=== PATIENT | male | born 1970 | race Two or more races ===

== ENCOUNTER 2021-08-22 00:10 | Inpatient (IN) | payer OTHER, SELFPAY ==
[2021-08-22 01:44] VITALS: BP 118/77; PULSE 86; RESP 17; TEMP 36; O2SAT 98; BMI 24.3
--- NOTE | 2021-08-22 02:39 | PC.ADMIT ---
50 yo male ad,itted to [facility] [place] 0022 this morning on a CV for psycha evaluation and detox. Per crisis repoirt
--- NOTE | 2021-08-22 02:41 | PC.ADMIT ---
50 yo male admitted [place] [facility] [place] for psych eval and detox. Per crisis report, pt presented to [facility] and after having been unsuccessful in securing a detox bed, was having SI stating that he was going to stab himself or [place] , after which he started waving knife in gestures to self harm. Report also stated pt said i cant live like this. Pt has been using Cocaine, heroin daily. Per crisis eval, pt is homeless. Pt states he has none when asked about family. No noted MHx. Pt was unable to complete admission process. Pt dx is Depression w/SI, Opioisd use d/o, stimulant use d/o cocaine. Pt has a significant hx of Inpt/Outpt psych as well as ATS(detox). Orders obtained and pt is on 15 min safety check.
[2021-08-22 06:00] VITALS: BP 131/72; PULSE 74; RESP 18; TEMP 36.5; O2SAT 96
--- NOTE | 2021-08-22 10:55 | PC.NURSE ---
Pt refused flu vaccine
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
--- NOTE | 2021-08-22 14:56 | HO.HSGERICON ---
History of Present Illness Data of Consult Service Date: 08/22/21 Primary Care Provider: Unknown Physician HPI Reason for consult: depression 50M admitted to inpatient psychiatry for severe depression. patient denies any medical complaints. he was not currently on any treatment for medical conditions. denies chest pain, sob, fever, chills. Review of Systems Review of Systems: Constitutional: Denies fever, denies Chills Eyes: denies blurry vision ENT: denies sore throat CVS: denies chest pain Respiratory: Denies dyspnea GI: no abdominal pain : denies dysuria MSK: denies neck pain Skin: denies rash Neuro: denies specific motor weakness Psych: depressed Endocrine: denies heat/cold intolerance Hematologic: denies easy bleeding Allergy: denies hives PMFSH Medical History Depression Opiate dependence Family History Mother Depression Social History Household Members: Unknown / Unable to assess Housing: Homeless Unable to assess alcohol history related to: Unknown Patient Tobacco Use Status: Current everyday Tobacco user Smoked in Last 30 Days: Yes Substance Use Type: Crack/Cocaine, Heroin and Marijuana Substance Use Frequency: Chronic Longstanding Last Used Substance: Just Prior to Admission Currently Displaying Signs/Symptoms of Drug Intoxication Withdrawal: No Any prior treatment program specific to substance use: Yes (many) Advance Directives: No Advance Directives Information Provided: No Advance Directives on File: No Do you have thoughts of harming others: None Do you have a plan to hurt others: No Plan Nutrition Risks: No Nutritional Risk Meds Allergies Allergy/AdvReac Type Severity Reaction Status Date / Time No Known Allergies Allergy Unverified 05/14/20 19:52 [No Known Allergies*] Active Medications: Current Medications Acetaminophen (Acetaminophen 325 Mg Tablet) 650 mg PO Q6H PRN PRN Reason: Headache/Pain Mild Scale (1-3) Al Hydroxide/Mg Hydroxide (Magnesium Hydrox/Alum Hydrox 30 Ml Oral.Susp) 30 ml PO Q6H PRN PRN Reason: Heartburn/Nausea Hydroxyzine HCl (Hydroxyzine Hcl 25 Mg Tablet) 25 mg PO BEDTIME PRN PRN Reason: Anxiety Magnesium Hydroxide (Milk Of Magnesia 30 Ml Oral.Susp) 30 ml PO DAILY PRN PRN Reason: Constipation Nicotine (Nicotine 21 Mg Patch.Td24) 21 mg TRANSDERMA DAILY PRN PRN Reason: Nicotine Cravings Nicotine Polacrilex (Nicotine Polacrilex 2 Mg Gum) 4 mg BUCCAL Q2H PRN PRN Reason: Nicotine Cravings Trazodone HCl (Trazodone Hcl 50 Mg Tablet) 50 mg PO BEDTIME PRN PRN Reason: Insomnia Assessment and Plan (1) Depression: Status: Acute 50M admitted for depression no acute medical issues continue psychiatric treatment Physical Exam Vital Signs: Last Vital Signs Temp 97.7 F 08/22/21 06:00 Pulse 74 08/22/21 06:00 Resp 18 08/22/21 06:00 BP 131/72 08/22/21 06:00 Pulse Ox 96 08/22/21 06:00 BMI result Body Mass Index 24.3 General: no acute distress HEENT: atraumatic Neck: normal to visual inspection CVS: S1, S2, RRR Resp: CTA bilateral Chest: non tender GI: soft, non tender, non distended : no CVA tenderness Skin: no rashes Extremities: no edema Neuro: Oriented X3, grossly intact, CN II-XII intact Psych: cooperative Neuro Cranial nerves: Yes CN's II-XII intact bilaterally
[2021-08-22 18:00] VITALS: BP 105/69; PULSE 79
[2021-08-22] MEDS: QUEtiapine Fumarate 100 MG TABLET PO (22:40)
[2021-08-23 06:00] VITALS: BP 108/68; PULSE 74; RESP 14; TEMP 36.9; O2SAT 99
[2021-08-23 08:29] LABS: MANUAL DIFF FLAG NO
[2021-08-23 08:35] LABS: Basophils Percent Auto 0.2 % (0-2); Eosinophils Percent Auto 0.1 % (0-4); Hematocrit 47.2 % (42.0-52.0); Hemoglobin 15.9 g/dl (14.0-18.0); Imm Gran Abs Auto 0.01 X10*3/uL (0.00-0.03); Imm Gran Pct Auto 0.1 % (0.0-0.4); Lymphocytes Absolute Auto 2.1 X10*3/uL (1.2-4.9); Lymphocytes Percent Auto 26.4 % (20-40); Mean Corpuscular HGB Conc 33.7 g/dl (31.0-36.0); Mean Corpuscular Hemoglobin 31.4 pg (27.0-33.0); Mean Corpuscular Volume 93.3 fL (80.0-98.0); Mean Platelet Volume 8.3 fL (9.4-12.4); Monocytes Absolute Auto 0.6 X10*3/uL (0.1-1.2); Monocytes Percent Auto 7.4 % (2-11); Neutrophils Absolute Auto 5.3 x10*3/uL (2.0-8.3); Neutrophils Percent Auto 65.8 % (45-73); Platelet Count 400 X10*3/uL (160-400); Red Blood Count 5.06 X10*6/uL (4.60-5.80); Red Cell Distribution Width 12.2 % (11.0-16.0); White Blood Count 8.1 X10*3/uL (4.8-10.8)
[2021-08-23 08:56] LABS: Alanine Aminotransferase 17 U/L (0-40); Albumin Level 4.2 g/dL (3.5-5.0); Alkaline Phosphatase 89 U/L (39-117); Anion Gap 11 (12-20); Aspartate Amino Transferase 17 U/L (5-37); Bilirubin Direct 0.2 mg/dL (0.0-0.5); Bilirubin Total 0.3 mg/dL (0.0-1.0); Blood Urea Nitrogen 16 mg/dL (9-16); Calcium 10.1 mg/dL (8.4-10.2); Carbon Dioxide 29 mmol/L (22-29); Chloride 104 mmol/L (96-108); Cholesterol 215 mg/dL; Creatinine Clr Calc Pharmacy 91.4; Estimated Glomerular Filt Rate > 60; Glucose Fasting 102 mg/dL (60-99); HDL Cholesterol 37 mg/dL; LDL Cholesterol Calculated 154 mg/dl; Potassium 4.3 mmol/L (3.3-5.1); Sodium 140 mmol/L (135-145); Total Protein 7.2 g/dL (6.5-8.0); Triglycerides 123 mg/dL
[2021-08-23 09:16] LABS: Thyroid Stimulating Hormone 0.42 uIU/mL (0.32-4.0)
[2021-08-23] MEDS: FLUoxetine HCl Oral Solution 20 MG/5 ML SOLUTION PO (09:30)
--- NOTE | 2021-08-23 09:49 | P.PNPSI_ITS ---
Subjective Subjective Date of Service: 08/23/21 Reason For Visit: depressive d/o Subjective Notes: Conditional Voluntary Interim History: Pt minimally engaging in meaningful conversation. Pt reports feeling depressed in context of not having stable housing, limited social supports. when asked if he would like referrals for substance use, pt states he is not sure. He reports passive SI, no plan or intent. He reports sleeping and eating well. Medication Compliance: Yes Side effects from medications: No Review of Systems Review of Systems unable to obtain due to patient lack of participation Mental Status Exam Mental Status Exam Narrative: A&O. Pt is lying down in bed, in hospital attire, somnolent, somewhat despondent and non-verbal. Poor eye contact, inattentive. No Tics or Tremors. No abnormal involuntary movements. Calm, however difficult to engage in conversation, withdrawn. Non-pressured speech, non-spontaneous, quiet vocal v olume and mostly non-verbal, responding with nodding head yes or no. No prolonged speech latency or dysarthria. Mood is ?depressed,? affect is blunted. Denies SI/SIB/HI upon inquiry. Denies A/VH or delusional thought content. Thoughts are concrete, appear slowed. No known cognitive or memory impairment. Insight/ Judgment limited. Diagnostics Vital Signs (24Hr): Vital Signs - 24 hr 08/23/21 21:26 08/24/21 06:00 Temperature 98.7 F 97.8 F Pulse Rate 68 71 Respiratory Rate 16 Blood Pressure 91/59 L 116/77 Pulse Oximetry 97 98 BMI result Body Mass Index 24.3 Labs Results: 08/23/21 08:00 08/23/21 08:00 Labs: Laboratory Results - last 48 hr 08/23/21 08/23/21 08:00 08:00 WBC 8.1 RBC 5.06 Hgb 15.9 Hct 47.2 MCV 93.3 MCH 31.4 MCHC 33.7 RDW 12.2 Plt Count 400 MPV 8.3 L Immature Gran % (Auto) 0.1 Neut % (Auto) 65.8 Lymph % (Auto) 26.4 [place] % (Auto) 7.4 Eos % (Auto) 0.1 Baso % (Auto) 0.2 Lymph # (Auto) 2.1 [place] # (Auto) 0.6 Eos # (Auto) 0.0 Baso # (Auto) 0.0 Abs Immat Gran (auto) 0.01 Absolute Neuts (auto) 5.3 Absolute Nucleated RBC 0.000 Nucleated RBC % (auto) 0.0 Sodium 140 Potassium 4.3 Chloride 104 Carbon Dioxide 29 Anion Gap 11 L BUN 16 Creatinine 1.02 Estim Creat Clear Calc 91.4 Estimated GFR > 60 Fasting Glucose 102 H Calcium 10.1 Total Bilirubin 0.3 Direct Bilirubin 0.2 AST 17 ALT 17 Alkaline Phosphatase 89 Total Protein 7.2 Albumin 4.2 Triglycerides 123 Cholesterol 215 LDL Cholesterol, Calc 154 HDL Cholesterol 37 TSH 0.42 Medications Medications Current Medications Acetaminophen (Acetaminophen 325 Mg Tablet) 650 mg PO Q6H PRN PRN Reason: Headache/Pain Mild Scale (1-3) Al Hydroxide/Mg Hydroxide (Magnesium Hydrox/Alum Hydrox 30 Ml Oral.Susp) 30 ml PO Q6H PRN PRN Reason: Heartburn/Nausea Clonidine HCl (Clonidine Hcl 0.1 Mg Tablet) 0.1 mg PO TID PRN; Protocol PRN Reason: anxiety, hyperarousal Fluoxetine HCl (Fluoxetine Hcl Oral Solution 20 Mg/5 Ml Solution) 20 mg PO DAILY [facility] Last Admin: 08/24/21 09:14 Dose: 20 mg Documented by: Hydroxyzine HCl (Hydroxyzine Hcl 50 Mg Tablet) 50 mg PO Q6H PRN PRN Reason: Anxiety Magnesium Hydroxide (Milk Of Magnesia 30 Ml Oral.Susp) 30 ml PO DAILY PRN PRN Reason: Constipation Nicotine (Nicotine 21 Mg Patch.Td24) 21 mg TRANSDERMA DAILY PRN PRN Reason: Nicotine Cravings Nicotine Polacrilex (Nicotine Polacrilex 2 Mg Gum) 4 mg BUCCAL Q2H PRN PRN Reason: Nicotine Cravings Quetiapine Fumarate (Quetiapine Fumarate 100 Mg Tablet) 100 mg PO BEDTIME [facility] Last Admin: 08/23/21 21:20 Dose: 100 mg Documented by: Trazodone HCl (Trazodone Hcl 50 Mg Tablet) 50 mg PO BEDTIME PRN PRN Reason: Insomnia Allergies Allergies Allergy/AdvReac Type Severity Reaction Status Date / Time No Known Allergies Allergy Unverified 05/14/20 19:52 [No Known Allergies*] Assessment & Plan Assessment & Plan (1) Opioid use disorder, severe, dependence: Status: Acute Code(s): F11.20 - Opioid dependence, uncomplicated Assessment and Plan: * Please monitor COWS * this blurb writer to follow up with attending provider to determine plan (2) MDD (major depressive disorder), recurrent episode, moderate: Status: Acute Code(s): F33.1 - Major depressive disorder, recurrent, moderate Assessment and Plan: continue prozac (3) Cocaine use disorder: Status: Acute Code(s): F14.10 - Cocaine abuse, uncomplicated Assessment and Plan: Pt with hx of MDD, opioid and cocaine dependence admitted for SI. PLAN 1. continue prozac 2. coordinate after care 3. obtain collateral information I spent _25 minutes with the patient and/or on the patient floor today, greater than?50% of which was spent counseling/coordinating care. Reason for contiued inpatient stay Substantial Risk for: harm to self
--- NOTE | 2021-08-23 10:21 | MHC.RECOVRN ---
Briefly met with pt in 512 to assess for opiate withdrawal. Pt in bed, appears calm and not in any withdrawal. Pt reported to provider recent substance use including heroin, 3 bundles daily, last use 08/20 1/2 bundle IN. Pt is not currently on methadone, has been in the past. Would like to initiate while inpatient. Pt denies withdrawal symptoms at this time. Full addiction medicine consult to follow.
--- NOTE | 2021-08-23 12:53 | PM.EVENT ---
Event Note Date of Service: 08/23/21 Event Note: Brief addiction note: Chart reviewed
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
[2021-08-23] MEDS: QUEtiapine Fumarate 100 MG TABLET PO (21:20)
[2021-08-23 21:26] VITALS: BP 91/59; PULSE 68; TEMP 37.1; O2SAT 97
[2021-08-24 06:00] VITALS: BP 116/77; PULSE 71; RESP 16; TEMP 36.6; O2SAT 98
--- NOTE | 2021-08-24 08:55 | HO.PSYCHPN ---
Subjective Subjective Date of Service: 08/24/21 Reason For Visit: depressive d/o Subjective Notes: Conditional Voluntary Interim History: Pt minimally engaging. He is visible in the cafeteria. He reports sleeping and eating well. When asked if he would want to meet in office to further discussed aftercare planning with RONI and this commercial insurance underwriter, pt states I don't feel like talking right now. He reports feeling depressed, very vague about suicidal ideation or whether he has intent or plan. He states he is not sure of he wants to be referred to substance use treatment program or not. Medication Compliance: Yes Side effects from medications: No Review of Systems Review of Systems unable to obtain due to patient lack of participation Mental Status Exam Mental Status Exam Narrative: A&O. Pt is lying down in bed, in hospital attire, somnolent, somewhat despondent and non-verbal. Poor eye contact, inattentive. No Tics or Tremors. No abnormal involuntary movements. Calm, however difficult to engage in conversation, withdrawn. Non-pressured speech, non-spontaneous, quiet vocal volume and mostly non-verbal, responding with nodding head yes or no. No prolonged speech latency or dysarthria. Mood is ?depressed,? affect is blunted. Denies SI/SIB/HI upon inquiry. Denies A/VH or delusional thought content. Thoughts are concrete, appear slowed. No known cognitive or memory impairment. Insight/ Judgment limited. Diagnostics Vital Signs (24Hr): Vital Signs - 24 hr 08/24/21 18:00 08/25/21 06:00 Temperature 98.4 F 98.4 F Pulse Rate 72 62 Respiratory Rate 16 Blood Pressure 125/87 104/73 Pulse Oximetry 97 100 BMI result Body Mass Index 24.3 Labs Results: 08/23/21 08:00 08/23/21 08:00 Labs: Laboratory Results - last 48 hr 08/23/21 08:00 Sodium 140 Potassium 4.3 Chloride 104 Carbon Dioxide 29 Anion Gap 11 L BUN 16 Creatinine 1.02 Estim Creat Clear Calc 91.4 Estimated GFR > 60 Fasting Glucose 102 H Calcium 10.1 Total Bilirubin 0.3 Direct Bilirubin 0.2 AST 17 ALT 17 Alkaline Phosphatase 89 Total Protein 7.2 Albumin 4.2 Triglycerides 123 Cholesterol 215 LDL Cholesterol, Calc 154 HDL Cholesterol 37 TSH 0.42 Medications Medications Current Medications Acetaminophen (Acetaminophen 325 Mg Tablet) 650 mg PO Q6H PRN PRN Reason: Headache/Pain Mild Scale (1-3) Al Hydroxide/Mg Hydroxide (Magnesium Hydrox/Alum Hydrox 30 Ml Oral.Susp) 30 ml PO Q6H PRN PRN Reason: Heartburn/Nausea Clonidine HCl (Clonidine Hcl 0.1 Mg Tablet) 0.1 mg PO TID PRN; Protocol PRN Reason: anxiety, hyperarousal Fluoxetine HCl (Fluoxetine Hcl Oral Solution 20 Mg/5 Ml Solution) 20 mg PO DAILY [facility] Last Admin: 08/24/21 09:14 Dose: 20 mg Documented by: Hydroxyzine HCl (Hydroxyzine Hcl 50 Mg Tablet) 50 mg PO Q6H PRN PRN Reason: Anxiety Magnesium Hydroxide (Milk Of Magnesia 30 Ml Oral.Susp) 30 ml PO DAILY PRN PRN Reason: Constipation Nicotine (Nicotine 21 Mg Patch.Td24) 21 mg TRANSDERMA DAILY PRN PRN Reason: Nicotine Cravings Nicotine Polacrilex (Nicotine Polacrilex 2 Mg Gum) 4 mg BUCCAL Q2H PRN PRN Reason: Nicotine Cravings Quetiapine Fumarate (Quetiapine Fumarate 100 Mg Tablet) 100 mg PO BEDTIME [facility] Last Admin: 08/24/21 22:33 Dose: 100 mg Documented by: Trazodone HCl (Trazodone Hcl 50 Mg Tablet) 50 mg PO BEDTIME PRN PRN Reason: Insomnia Last Admin: 08/24/21 22:36 Dose: 50 mg Documented by: Allergies Allergies Allergy/AdvReac Type Severity Reaction Status Date / Time No Known Allergies Allergy Unverified 05/14/20 19:52 [No Known Allergies*] Assessment & Plan Assessment & Plan (1) Opioid use disorder, severe, dependence: Status: Acute Code(s): F11.20 - Opioid dependence, uncomplicated Assessment and Plan: Please monitor COWS this commercial insurance underwriter to follow up with attending provider to determine plan (2) MDD (major depressive disorder), recurrent episode, moderate: Status: Acute Code(s): F33.1 - Major depressive disorder, recurrent, moderate Assessment and Plan: continue prozac (3) Cocaine use disorder: Status: Acute Code(s): F14.10 - Cocaine abuse, uncomplicated Assessment and Plan: Pt with hx of MDD, opioid and cocaine dependence admitted for SI. PLAN 1. continue prozac 2. coordinate after care 3. obtain collateral information I spent minutes with the patient and/or on the patient floor today, greater than?50% of which was spent counseling/coordinating care. Reason for contiued inpatient stay Substantial Risk for: harm to self
[2021-08-24] MEDS: FLUoxetine HCl Oral Solution 20 MG/5 ML SOLUTION PO (09:14)
[2021-08-24 18:00] VITALS: BP 125/87; PULSE 72; TEMP 36.9; O2SAT 97
[2021-08-24] MEDS: QUEtiapine Fumarate 100 MG TABLET PO (22:33)
[2021-08-24] MEDS: traZODone HCL 50 MG TABLET PO (22:36)
--- NOTE | 2021-08-24 23:38 | PC.NURSE ---
Patient did wake up when this global technical writer came into his room to give him his HS medications. He was quiet but cooperative. Denied any problems but did say Yes when asked if he wanted Trazadone for sleep. Patient has otherwise been asleep or resting in his room.
[2021-08-25 06:00] VITALS: BP 104/73; PULSE 62; RESP 16; TEMP 36.9; O2SAT 100
[2021-08-25] MEDS: FLUoxetine HCl Oral Solution 20 MG/5 ML SOLUTION PO (09:08)
--- NOTE | 2021-08-25 12:27 | HO.PSYCHPN ---
Subjective Subjective Date of Service: 08/25/21 Reason For Visit: depressive d/o Subjective Notes: Conditional Voluntary Interim History: Pt met with this automobile and property underwriter and RONI Oakley. Pt reports that he needed bed to rest, wants to discharge to friend's house. he denies SI/HI. He reports his sleep is better as well as appetite. He reports his mood is also better. In terms of substance use, pt reports he will be open to follow up in community with referrals for residential treatment programs. Pt does report he was mostly waiting for his check this coming Monday. Pt declined referrals for methadone or suboxone. He denies VH/AH. No signs of withdrawal. Per nursing, pt visible in unit, no behavioral concerns, does not attend groups. Medication Compliance: Yes Side effects from medications: No Attending Groups: No Review of Systems Review of Systems unable to obtain due to patient lack of participation Mental Status Exam Mental Status Exam Narrative: A&O. Pt is casually groomed, good hygiene, in NAD. No Tics or Tremors. No abnormal involuntary movements. Calm, superficially cooperative. Non-pressured speech, non-spontaneous, quiet vocal volume and mostly non-verbal, responding with nodding head yes or no. No prolonged speech latency or dysarthria. Mood is ?better,? affect is congruent, brighter at times. Denies SI/SIB/HI upon inquiry. Denies A/VH or delusional thought content. Thoughts are concrete, appear slowed. No known cognitive or memory impairment. Insight/ Judgment poor in terms of substance use. Diagnostics Vital Signs (24Hr): Vital Signs - 24 hr 08/25/21 18:00 08/26/21 06:00 Temperature 98.8 F 98.8 F Pulse Rate 80 66 Respiratory Rate 18 16 Blood Pressure 106/61 112/74 Pulse Oximetry 96 98 BMI result Body Mass Index 24.3 Labs Results: 08/23/21 08:00 08/23/21 08:00 Labs: Laboratory Results - last 48 hr 08/25/21 16:56 Urine Opiates Screen Not Detected Urine Fentanyl Screen POSITIVE H Ur Barbiturates Screen Not Detected Ur Phencyclidine Scrn Not Detected Ur Amphetamines Screen Not Detected U Benzodiazepines Scrn Not Detected Urine Cocaine Screen Not Detected U Marijuana (THC) Screen Not Detected Medications Medications Current Medications Acetaminophen (Acetaminophen 325 Mg Tablet) 650 mg PO Q6H PRN PRN Reason: Headache/Pain Mild Scale (1-3) Al Hydroxide/Mg Hydroxide (Magnesium Hydrox/Alum Hydrox 30 Ml Oral.Susp) 30 ml PO Q6H PRN PRN Reason: Heartburn/Nausea Clonidine HCl (Clonidine Hcl 0.1 Mg Tablet) 0.1 mg PO TID PRN; Protocol PRN Reason: anxiety, hyperarousal Fluoxetine HCl (Fluoxetine Hcl Oral Solution 20 Mg/5 Ml Solution) 20 mg PO DAILY [facility] Last Admin: 08/26/21 08:14 Dose: 20 mg Documented by: Hydroxyzine HCl (Hydroxyzine Hcl 50 Mg Tablet) 50 mg PO Q6H PRN PRN Reason: Anxiety Magnesium Hydroxide (Milk Of Magnesia 30 Ml Oral.Susp) 30 ml PO DAILY PRN PRN Reason: Constipation Nicotine (Nicotine 21 Mg Patch.Td24) 21 mg TRANSDERMA DAILY PRN PRN Reason: Nicotine Cravings Nicotine Polacrilex (Nicotine Polacrilex 2 Mg Gum) 4 mg BUCCAL Q2H PRN PRN Reason: Nicotine Cravings Quetiapine Fumarate (Quetiapine Fumarate 100 Mg Tablet) 100 mg PO BEDTIME [facility] Last Admin: 08/25/21 20:43 Dose: 100 mg Documented by: Trazodone HCl (Trazodone Hcl 50 Mg Tablet) 50 mg PO BEDTIME PRN PRN Reason: Insomnia Last Admin: 08/24/21 22:36 Dose: 50 mg Documented by: Allergies Allergies Allergy/AdvReac Type Severity Reaction Status Date / Time No Known Allergies Allergy Unverified 05/14/20 19:52 [No Known Allergies*] Assessment & Plan Assessment & Plan (1) Opioid use disorder, severe, dependence: Status: Acute Code(s): F11.20 - Opioid dependence, uncomplicated Assessment and Plan: Please monitor COWS this automobile and property underwriter to follow up with attending provider to determine plan (2) MDD (major depressive disorder), recurrent episode, moderate: Status: Acute Code(s): F33.1 - Major depressive disorder, recurrent, moderate Assessment and Plan: continue prozac (3) Cocaine use disorder: Status: Acute Code(s): F14.10 - Cocaine abuse, uncomplicated Assessment and Plan: Pt with hx of MDD, opioid and cocaine dependence admitted for SI. PLAN 1. continue prozac 2. coordinate after care 3. obtain collateral information I spent minutes with the patient and/or on the patient floor today, greater than?50% of which was spent counseling/coordinating care. Reason for contiued inpatient stay Substantial Risk for: stable for discharge
[2021-08-25 17:34] LABS: Amphetamine Screen Urine Not Detected (Not Detect); Barbiturates, Urine Not Detected (Not Detect); Benzodiazepines Screen Urine Not Detected (Not Detect); Cannabinoid Screen Urine Not Detected (Not Detect); Cocaine Screen Urine Not Detected (Not Detect); Fentanyl, urine POSITIVE (Not Detect); Opiate Screen Urine Not Detected (Not Detect); Phencyclidine Screen Urine Not Detected (Not Detect)
[2021-08-25 18:00] VITALS: BP 106/61; PULSE 80; RESP 18; TEMP 37.1; O2SAT 96
[2021-08-25] MEDS: QUEtiapine Fumarate 100 MG TABLET PO (20:43)
[2021-08-26 06:00] VITALS: BP 112/74; PULSE 66; RESP 16; TEMP 37.1; O2SAT 98
[2021-08-26] MEDS: FLUoxetine HCl Oral Solution 20 MG/5 ML SOLUTION PO (08:14)
--- NOTE | 2021-08-26 17:34 | P.DS_ITS ---
DS: Providers Provider Date of Service: 08/26/21 Date of admission: 08/22/21 00:10 Primary care physician: Unknown Physician Consults: 08/22/21 00:15 Consult to Hospitalist Routine Consulting Provider: Hospitalist Reason For Exam: admission PE 08/23/21 06:03 Addiction Medicine Routine Consulting Provider: Kanwal Lucas Reason for consultation: Pt has hx of methadone, daily heroin and cocaine use DS: Diagnosis Discharge Diagnosis (1) Opioid use disorder, severe, dependence: Status: Acute (2) MDD (major depressive disorder), recurrent episode, moderate: Status: Acute (3) Cocaine use disorder: Status: Acute DS: Medications Discharge Medications Home Medications: Previous Rx's Medication Instructions Recorded fluoxetine 20 mg capsule (Prozac) 20 mg PO DAILY #30 cap 08/26/21 quetiapine 100 mg tablet 100 mg PO BEDTIME #30 tab 08/26/21 Mental Status Exam Mental Status Exam Narrative: A&O. Pt is casually groomed, good hygiene, in NAD. No Tics or Tremors. No abnormal involuntary movements. Calm, superficially cooperative. Non-pressured speech, non-spontaneous, quiet vocal volume and mostly non-verbal, responding with nodding head yes or no. No prolonged speech latency or dysarthria. Mood is ?better,? affect is congruent, brighter at times. Denies SI/SIB/HI upon inquiry. Denies A/VH or delusional thought content. Thoughts are concrete, appear slowed. No known cognitive or memory impairment. Insight/ Judgment poor in terms of substance use. Data Data Completed and Pending Completed studies during hospitalization [Text1]: 08/23/21 08/23/21 08/25/21 08:00 08:00 16:56 WBC 8.1 RBC 5.06 Hgb 15.9 Hct 47.2 MCV 93.3 MCH 31.4 MCHC 33.7 RDW 12.2 Plt Count 400 MPV 8.3 L Immature Gran % (Auto) 0.1 Neut % (Auto) 65.8 Lymph % (Auto) 26.4 Shoshone % (Auto) 7.4 Eos % (Auto) 0.1 Baso % (Auto) 0.2 Lymph # (Auto) 2.1 Shoshone # (Auto) 0.6 Eos # (Auto) 0.0 Baso # (Auto) 0.0 Abs Immat Gran (auto) 0.01 Absolute Neuts (auto) 5.3 Absolute Nucleated RBC 0.000 Nucleated RBC % (auto) 0.0 Sodium 140 Potassium 4.3 Chloride 104 Carbon Dioxide 29 Anion Gap 11 L BUN 16 Creatinine 1.02 Estim Creat Clear Calc 91.4 Estimated GFR > 60 Fasting Glucose 102 H Calcium 10.1 Total Bilirubin 0.3 Direct Bilirubin 0.2 AST 17 ALT 17 Alkaline Phosphatase 89 Total Protein 7.2 Albumin 4.2 Triglycerides 123 Cholesterol 215 LDL Cholesterol, Calc 154 HDL Cholesterol 37 TSH 0.42 Urine Opiates Screen Not Detected Urine Fentanyl Screen POSITIVE H Ur Barbiturates Screen Not Detected Ur Phencyclidine Scrn Not Detected Ur Amphetamines Screen Not Detected U Benzodiazepines Scrn Not Detected Urine Cocaine Screen Not Detected U Marijuana (THC) Screen Not Detected DS: Summary Hospital Course Hospital Course: Subjective Notes: [place] Warning and Conditional Voluntary Healthcare Proxy: No Guardianship: No Medical Problems Affecting Mental Status: No Narrative: Jose Guadalupe is a 50 y.o. Who carries a dx of polysubstance abuse and MDD, recurrent episode. Pt was Jose Guadalupe was evaluated today by [facility] Crisis Co-response with [place] [employer] outside of [facility]'s [facility] after staff called 911 stating that he had a knife and was threatening to kill himself. Pt endorsed SI with a plan to stab himself or jump off the [facility] [place]. Pt is currently homeless, has been using heroin and crack cocaine daily. Utox was positive for methadone, cocaine, THC, opiates, and fentanyl on 08/20/21. Pt evaluated this morning and reports he is ?doing okay.? Pt does not have a particular reason for non-adherence with medications, other than chronic relapsing and not following up with appointments. When asked if he feels depressed, pt nodded his head yes. When asked if he wants to restart meds, pt nodded his head yes. Sleep is ?not good,? indicates that he is sleeping in the day, but not at night, Energy is low. He denies having nightmares or flashbacks. Denies having hallucinations. Has psychomotor restlessness, which he attributes to withdrawal. He denies SI/SIB upon inquiry and says he feels safe.? Past Psychiatric History: -Hx of multiple psych IPLOC, last at [facility] 01/2021 and [facility] 11/2020 -Hx of presenting to crisis with SI, depression, and polysubstance use. In 01/2021 pt was seen at [facility] due to SI with toxic ingestion of a handful of clonidine and gabapentin as a suicide attempt, disposition was IPLOC at [facility]. In 11/2020, pt was seen by crisis due to depression, SI, and HI with plan to stab others.? -No OP psych services. Last saw psych provider at [facility]. -Past medications: Hydroxyzine 50mg QID, Clonidine 0.1mg po TID, Methadone 68mg, Prozac 20mg QD (effective, took while incarcerated), sertraline 25mg (non adherent), seroquel (took while incarcerated, helped with sleep and mood), risperdal 0.5 mg BID (says this was helpful), gabapentin, clonidine Medical Evaluation Reviewed: Yes HOSPITAL COURSE On the unit, Mr. Khoury was admitted on a CV and placed on 15 minutes checks for safety. Pt reported getting upset as he thought he was not going to received scheduled methadone as he had relapsed. He reports in that context he reported suicidal thought. He reports he carries knife for his own safety as he is on the streets. We discussed risks, benefits and alternative treatment options. Pt reports in the past he has been on prozac and seroquel. He was started on prozac which he tolerated well. He was started on seroquel 100mg po qhs for sleep and mood. He agreed to continue methadone for MAT. His affect was gradually brighter. He denied suicidal or homicidal ideation. No signs of pt experiencing AH/VH. Pt was sleeping and eating well. There were no incidents of disruptive behaviors nor use of restraints. He attended some assigned groups. No collateral information gathered as pt declined. Time spent discussing smoking cessation with patient: more than 10 minutes Status at Discharge Cognitive/behavioral status at discharge: Pt with brighter affect. He denies SI/HI. no signs of psychosis, No aggression t owards self or others. Pt working towards recovery, given Narcan at time of discharge- educated on harm reduction. Functional status at discharge: independent ambulation Overall status at discharge: patient is progressing back to baseline Time Spent with Patient Time attestation: Total time spent providing and/or coordinating discharge services: Discharge Plan Discharge Anticipated Discharge Date/Time: 08/27/21 12:30 Patient Disposition: Home, Self-Care Discharge Diagnosis: MDD, recurrent moderate Cocaine/Opioid use disorder Referrals: Ramy Wang [Other] - Tomorrow (Patient needs to call [facility] to self refer himself to residential program following discharge [facility] [Other] - 1 Week (Patient needs to call [facility] to self-refer to CSS program following discharge from [facility] Savanna Culp [Other] - 08/30/21 12:00 pm (Initial outpatient therapy appointment Appointment in office at [facility] you need to attend therapy appointment to have medication management services) Lesley Fletcher [Other] - 09/23/21 1:30 pm (Initial psychiatric evaluation appointment Appointment in office at [facility]) Lesley Fletcher [Other] - 10/21/21 10:20 am (Medication Management appointment with psychiatrist in office at [facility].) Nighat Holland MD [Physician] - 1 Week Physician,Mohinder J [Primary Care Provider] - 08/30/21 12:00 pm Discharge Medications: New quetiapine 100 mg Tablet 100 mg PO BEDTIME Qty: 30 0RF fluoxetine [Prozac] 20 mg capsule 20 mg PO DAILY Qty: 30 0RF Discharge Orders: Discharge Order (Routine); Ordered 08/27/21 Ordered By: Jalyn Mustafa Diet: regular diet Activity on Discharge: As tolerated Stand Alone Forms: Patient Portal Discharge page, Community Support Care Plan Goals: Maintain mood No SI/HI Harm reduction- take home narcan given on d/c Health Concerns: follow up with PCP- pt declined referral. Plan of Treatment: 1. take medications as prescribed 2. follow up with referrals 3. Go to nearest ED in event of emergency or call 911 Assessment: Pt with brighter affect, less symptoms of depression. More future oriented in that he is looking forward to meet with friend and continue OP psych treatment. pt does minimize effects on substances on mood and ability to have more stable life. No signs of aggression towards self or others. Pt declined referrals for substance use treatment program. He did agree to meet with cheerleading coach. We discussed harm reduction plan including take home narcan. Discharge Date/Time: 08/27/21 12:55
[2021-08-26 18:00] VITALS: BP 116/64; PULSE 74; TEMP 36.9
[2021-08-26] MEDS: QUEtiapine Fumarate 100 MG TABLET PO (19:46)
[2021-08-27 06:00] VITALS: BP 132/80; PULSE 67; RESP 16; TEMP 36.3
[2021-08-27 08:51] LABS: Estimated Average Glucose 108 mg/dL; Hemoglobin A1c % 5.4 %
[2021-08-27] MEDS: FLUoxetine HCl Oral Solution 20 MG/5 ML SOLUTION PO (09:27)
--- NOTE | 2021-08-27 11:21 | P.DS_ITS ---
DS: Providers Provider Date of Service: 08/27/21 Date of admission: 08/22/21 00:10 Date of discharge: 08/27/21 Primary care physician: Unknown Physician Attending physician on admission: Honey Moss Consults: 08/22/21 00:15 Consult to Hospitalist Routine Consulting Provider: Hospitalist Reason For Exam: admission PE 08/23/21 06:03 Addiction Medicine Routine Consulting Provider: Kanwal Lucas Reason for consultation: Pt has hx of methadone, daily heroin and cocaine use Attending physician on discharge: Honey Moss Discharging clinician: Jalyn Mustafa DS: Diagnosis Discharge Diagnosis (1) Opioid use disorder, severe, dependence: Status: Acute (2) MDD (major depressive disorder), recurrent episode, moderate: Status: Acute (3) Cocaine use disorder: Status: Acute DS: Medications Discharge Medications Home Medications: Previous Rx's Medication Instructions Recorded fluoxetine 20 mg capsule (Prozac) 20 mg PO DAILY #30 cap 08/26/21 quetiapine 100 mg tablet 100 mg PO BEDTIME #30 tab 08/26/21 Mental Status Exam Mental Status Exam Patient Appearance: Appropriate Patient Orientation: Person, Place, Time and Situation Level of Consciousness: Appropriate and Alert Patient Behavior: Appropriate Mood Description: Anxious Affect Description: Calm and Anxious Patient Cognition Impaired: No Ability to Follow Directions: Good Speech Pattern: Clear Memory Description: Intact Hallucinations: None Delusions: Not Present Thought Process: Intact Thought Content: positive for Intact Judgement: Good Data Data Completed and Pending Completed studies during hospitalization [Text1]: 08/23/21 08/23/21 08/25/21 08:00 08:00 16:56 WBC 8.1 RBC 5.06 Hgb 15.9 Hct 47.2 MCV 93.3 MCH 31.4 MCHC 33.7 RDW 12.2 Plt Count 400 MPV 8.3 L Immature Gran % (Auto) 0.1 Neut % (Auto) 65.8 Lymph % (Auto) 26.4 Elk % (Auto) 7.4 Eos % (Auto) 0.1 Baso % (Auto) 0.2 Lymph # (Auto) 2.1 Elk # (Auto) 0.6 Eos # (Auto) 0.0 Baso # (Auto) 0.0 Abs Immat Gran (auto) 0.01 Absolute Neuts (auto) 5.3 Absolute Nucleated RBC 0.000 Nucleated RBC % (auto) 0.0 Sodium 140 Potassium 4.3 Chloride 104 Carbon Dioxide 29 Anion Gap 11 L BUN 16 Creatinine 1.02 Estim Creat Clear Calc 91.4 Estimated GFR > 60 Fasting Glucose 102 H Estimat Average Glucose Hemoglobin A1c % Calcium 10.1 Total Bilirubin 0.3 Direct Bilirubin 0.2 AST 17 ALT 17 Alkaline Phosphatase 89 Total Protein 7.2 Albumin 4.2 Triglycerides 123 Cholesterol 215 LDL Cholesterol, Calc 154 HDL Cholesterol 37 TSH 0.42 Urine Opiates Screen Not Detected Urine Fentanyl Screen POSITIVE H Ur Barbiturates Screen Not Detected Ur Phencyclidine Scrn Not Detected Ur Amphetamines Screen Not Detected U Benzodiazepines Scrn Not Detected Urine Cocaine Screen Not Detected U Marijuana (THC) Screen Not Detected 08/26/21 18:09 WBC RBC Hgb Hct MCV MCH MCHC RDW Plt Count MPV Immature Gran % (Auto) Neut % (Auto) Lymph % (Auto) Elk % (Auto) Eos % (Auto) Baso % (Auto) Lymph # (Auto) Elk # (Auto) Eos # (Auto) Baso # (Auto) Abs Immat Gran (auto) Absolute Neuts (auto) Absolute Nucleated RBC Nucleated RBC % (auto) Sodium Potassium Chloride Carbon Dioxide Anion Gap BUN Creatinine Estim Creat Clear Calc Estimated GFR Fasting Glucose Estimat Average Glucose 108 Hemoglobin A1c % 5.4 Calcium Total Bilirubin Direct Bilirubin AST ALT Alkaline Phosphatase Total Protein Albumin Triglycerides Cholesterol LDL Cholesterol, Calc HDL Cholesterol TSH Urine Opiates Screen Urine Fentanyl Screen Ur Barbiturates Screen Ur Phencyclidine Scrn Ur Amphetamines Screen U Benzodiazepines Scrn Urine Cocaine Screen U Marijuana (THC) Screen DS: Summary Hospital Course Hospital Course: admitted 08/22/21 for depression, SI in context of polysubstance use disorder; pt compliant with treatment while inpatient. Upon discharge pt bright, expresses hope for future. agrees to discharge plan, intends to take medications as prescribed; will got to a friends home tonight and will follow up with outpatient providers. Time spent discussing smoking cessation with patient: 3 to 10 minutes Status at Discharge Cognitive/behavioral status at discharge: pt alert and oriented x4 . bright, mild anxiety, expresses hope for future; states ready for d/c and agrees to outpatient appts/treatment Functional status at discharge: independent ambulation Overall status at discharge: patient is back to baseline Time Spent with Patient Time attestation: Total time spent providing and/or coordinating discharge services: Time spent: Less than 30 minutes Discharge Plan Discharge Anticipated Discharge Date/Time: 08/27/21 12:30 Patient Disposition: Home, Self-Care Discharge Diagnosis: MDD, recurrent moderate Cocaine/Opioid use disorder Referrals: Ramy Wang [Other] - Tomorrow (Patient needs to call [facility] to self refer himself to residential program [place] [facility] [facility] [Other] - 1 Week (Patient needs to call [facility] to self-refer to [facility] program following [place] [facility] Savanna Culp [Other] - 08/30/21 12:00 pm (Initial outpatient therapy appointment Appointment in office at [facility] you need to attend therapy appointment to have medication management services) Lesley Fletcher [Other] - 09/23/21 1:30 pm (Initial psychiatric evaluation appointment Appointment in office at [facility]) Lesley Fletcher [Other] - 10/21/21 10:20 am (Medication Management appointment with psychiatrist in office at [facility].) Nighat Holland MD [Physician] - 1 Week Physician,Unknown J [Primary Care Provider] - 08/30/21 12:00 pm Discharge Medications: New quetiapine 100 mg Tablet 100 mg PO BEDTIME Qty: 30 RF: 0 fluoxetine [Prozac] 20 mg capsule 20 mg PO DAILY Qty: 30 RF: 0 Discharge Orders: Discharge Order (Routine); Ordered 08/27/21 Ordered By: Jalyn Mustafa Diet: regular diet Activity on Discharge: As tolerated Stand Alone Forms: Patient Portal Discharge page, Community Support Care Plan Goals: Maintain mood No SI/HI Harm reduction- take home narcan given on d/c Health Concerns: follow up with PCP- pt declined referral. Plan of Treatment: 1. take medications as prescribed 2. follow up with referrals 3. Go to nearest ED in event of emergency or call 911 Assessment: Pt with brighter affect, less symptoms of depression. More future oriented in that he is looking forward to meet with friend and continue OP psych treatment. pt does minimize effects on substances on mood and ability to have more stable life. No signs of aggression towards self or others. Pt declined referrals for substance use treatment program. He did agree to meet with motor coach driver. We discussed harm reduction plan including take home rony.
[2021-08-27] MEDS: Naloxone HCl Nasal TAKE HOME 4 MG SPRAY NOSTRILALT (11:30)
== END 2021-08-27 12:55 | disposition home or self-care (01) | DRG 751 ==
PROVIDERS: Psychiatry & Neurology Psychiatry; Admitting Provider Psychiatry & Neurology Psychiatry; Visit Provider Social Worker
DX: F33.1 Major depressive disorder, recurrent, moderate (principal); R45.851 Suicidal ideations; F11.20 Opioid dependence, uncomplicated; F14.10 Cocaine abuse, uncomplicated; F17.210 Nicotine dependence, cigarettes, uncomplicated; Z71.6 Tobacco abuse counseling; Z79.899 Other long term (current) drug therapy
CPT/HCPCS: 36415; 80053; 80061; 80076; 80307; 83036; 84443; 85025